=== PATIENT | female | born 1960 | race American Indian/Alaskan Native ===

== ENCOUNTER 2016-12-15 02:00 | Emergency (ER) | payer OTHER, MEDICAID ==
[2016-12-15 02:22] VITALS: BP 102/72; PULSE 82; RESP 16; TEMP 97.2
--- NOTE | 2016-12-15 03:12 | C.PDOC ---
History Of Present Illness <Rebeca Vogel - Last Filed: 12/15/16 03:09> <Kaye Bella - Last Filed: 12/15/16 03:34> 56 year old female presents to the ED with complaints of progressively worsening knee pain after falling two days ago and landing on right knee bent. She states she applied ice right away to her knee but did not take any over the counter medications for it. Patient notes moderate swelling of right knee and denies weakness and numbness. (Kaye Bella) <Rebeca Vogel - Last Filed: 12/15/16 03:09> History Per: Patient History/Exam Limitations: no limitations Onset/Duration Of Symptoms: Days Current Symptoms Are (Timing): Worse - Knee Description Of Injury: Fell <Kaye Bella - Last Filed: 12/15/16 03:34> Time Seen by Provider: 12/15/16 02:05 Chief Complaint (Nursing): Lower Extremity Problem/Injury Past Medical History - Medical History PMH: Asthma, Bronchitis, Pneumonia Denies: Chronic Kidney Disease Family History: States: Unknown Family Hx - Social History Hx Alcohol Use: No Hx Substance Use: No <Rebeca Vogel - Last Filed: 12/15/16 03:09> Reviewed: Historical Data, Nursing Documentation, Vital Signs <Kaye Bella - Last Filed: 12/15/16 03:34> Vital Signs: Last Vital Signs Temp 97.2 F L 12/15/16 02:07 Pulse 82 12/15/16 02:07 Resp 16 12/15/16 02:07 BP 102/72 12/15/16 02:07 Pulse Ox 98 12/15/16 03:19 Review Of Systems Constitutional: Negative for: Fever, Chills, Sweats Cardiovascular: Negative for: Chest Pain Respiratory: Negative for: Cough, Shortness of Breath Gastrointestinal: Negative for: Nausea, Vomiting, Abdominal Pain, Diarrhea Musculoskeletal: Positive for: Other (right knee pain and swelling ) Skin: Negative for: Rash Neurological: Negative for: Weakness, Numbness <Kaye Bella - Last Filed: 12/15/16 03:34> Physical Exam - Physical Exam Appears: Non-toxic, No Acute Distress Skin: Warm, Dry, No Rash Head: Atraumatic Neck: Supple Chest: Symmetrical, No Deformity Cardiovascular: Rhythm Regular Respiratory: No Rales, No Rhonchi, No Stridor, No Wheezing Gastrointestinal/Abdominal: Soft, No Tenderness, No Distention, No Guarding, No Rebound Extremity: Normal ROM (full ROM in right knee but with pain ), Tenderness ( tenderness to medial area of the knee and popliteal area ), Swelling (moderate swelling to anterior aspect of right knee), Other (no warmth or erythema to right knee ) Neurological/Psych: Oriented x3 <Kaye Bella - Last Filed: 12/15/16 03:34> ED Course And Treatment O2 Sat by Pulse Oximetry: 98 <Rebeca Vogel - Last Filed: 12/15/16 03:09> - Other Rad Right Knee E-Ray X-Ray: Viewed By Me, Read By Radiologist Interpretation: X-ray shows moderate arthritic changes. No fractures or dislocations <Kaye Bella - Last Filed: 12/15/16 03:34> Medical Decision Making <Rebeca Vogel - Last Filed: 12/15/16 03:09> <Kaye Bella - Last Filed: 12/15/16 03:34> Medical Decision Making: Patient was given a knee brace and was ambulatory with cane upon discharge home. (Kaye Bella) Disposition Counseled Patient/Family Regarding: Diagnosis, Need For Followup - Disposition Disposition Time: 03:12 <Rebeca Vogel - Last Filed: 12/15/16 03:09> <Kaye Bella - Last Filed: 12/15/16 03:34> - Disposition Disposition: HOME/ ROUTINE Condition: STABLE Additional Instructions: Please elevate leg Apply ICE Follow up with PMD Take motrin for pain Return to ER if worse Prescriptions: Ibuprofen [Motrin] 600 mg PO Q6H #30 tab Instructions: Knee Sprain (ED), Contusion in Adults (ED) - Clinical Impression Clinical Impression: Knee contusion, Knee pain, right <Rebeca Vogel - Last Filed: 12/15/16 03:09> - Scribe Statement The provider has reviewed the documentation as recorded by the Scribe <Kaye Bella - Last Filed: 12/15/16 03:34> - Scribe Statement Meg Westbrook All medical record entries made by the Scribe were at my direction and personally dictated by me. I have reviewed the chart and agree that the record accurately reflects my personal performance of the history, physical exam, medical decision making, and the department course for this patient. I have also personally directed, reviewed, and agree with the discharge instructions and disposition. (Kaye Bella)
[2016-12-15 03:33] VITALS: O2SAT 99
--- NOTE | 2016-12-15 03:39 | C.PDOC ---
History Of Present Illness 56 year old female presents to the ED with complaints of progressively worsening knee pain after falling two days ago and landing on a bent right knee . She states she applied ice right away to her knee but did not take any over the counter medications for it. Patient notes moderate swelling of right knee and denies weakness and numbness. Time Seen by Provider: 12/15/16 02:05 Chief Complaint (Nursing): Lower Extremity Problem/Injury History Per: Patient History/Exam Limitations: no limitations Onset/Duration Of Symptoms: Days Current Symptoms Are (Timing): Worse - Knee Description Of Injury: Fell Past Medical History Reviewed: Historical Data, Nursing Documentation, Vital Signs Vital Signs: Last Vital Signs Temp 97.2 F L 12/15/16 02:07 Pulse 82 12/15/16 02:07 Resp 16 12/15/16 02:07 BP 102/72 12/15/16 02:07 Pulse Ox 99 12/15/16 03:44 - Medical History PMH: Asthma, Bronchitis, Pneumonia Family History: States: Unknown Family Hx - Social History Hx Alcohol Use: No Hx Substance Use: No Review Of Systems Constitutional: Negative for: Fever Musculoskeletal: Positive for: Other (moderate right knee swelling and pain) Neurological: Negative for: Weakness, Numbness Physical Exam - Physical Exam Appears: Non-toxic, No Acute Distress Skin: Warm, Dry, No Rash Head: Atraumatic Eye(s): bilateral: PERRL, EOMI Neck: Supple Extremity: Normal ROM (full ROM but with pain in right knee), Tenderness ( tenderness to medial right knee and popliteal area), No Calf Tenderness, Capillary Refill (<2 sec), No Deformity, Swelling (moderate swelling to anterior Rt knee ) Extremity: Bilateral: Normal Color And Temperature Pulses: Left Dorsalis Pedis: Normal, Right Dorsalis Pedis: Normal Neurological/Psych: Oriented x3, Normal Motor, Normal Sensation Gait: With Assistance (cane) ED Course And Treatment O2 Sat by Pulse Oximetry: 99 (room air ) Pulse Ox Interpretation: Normal - Other Rad Right Knee X-Ray X-Ray: Viewed By Me, Read By Radiologist Interpretation: No fractures or dislocations. X-ray shows moderate arthritic changes Medical Decision Making Medical Decision Making: Patient was placed in a knee brace by CP and was ambulatory with a cane upon discharge. Disposition Counseled Patient/Family Regarding: Studies Performed, Diagnosis, Need For Followup, Rx Given - Disposition Disposition: HOME/ ROUTINE Disposition Time: 03:32 Condition: STABLE Additional Instructions: Please elevate leg Apply ICE Follow up with PMD Take motrin for pain Return to ER if worse Prescriptions: Ibuprofen [Motrin] 600 mg PO Q6H #30 tab Instructions: Knee Sprain (ED), Contusion in Adults (ED) - Clinical Impression Clinical Impression: Knee contusion, Knee pain, right - Scribe Statement The provider has reviewed the documentation as recorded by the Scribradha Westbrook All medical record entries made by the Pita were at my direction and personally dictated by me. I have reviewed the chart and agree that the record accurately reflects my personal performance of the history, physical exam, medical decision making, and the department course for this patient. I have also personally directed, reviewed, and agree with the discharge instructions and disposition.
--- NOTE | 2016-12-15 12:20 | RAD ---
PROCEDURE: Right Knee Radiographs. HISTORY: pain, fall COMPARISON: None. FINDINGS: BONES: Degenerative changes medial compartment, lateral compartment and patellofemoral joint. JOINTS: Moderate osteoarthritic changes. JOINT EFFUSION: Moderate suprapatellar joint effusion. OTHER FINDINGS: None. IMPRESSION: Multi compartment degenerative change. No acute fracture. Moderate suprapatellar joint effusion.
== END 2016-12-15 03:32 | disposition home or self-care (01) ==
LOC: C.ER 02:00
DX: S80.01XA Contusion of right knee, initial encounter (principal); W19.XXXA Unspecified fall, initial encounter; M25.561 Pain in right knee
CPT/HCPCS: 73562; 96372; 99283; J1885

== ENCOUNTER 2017-02-14 20:57 | Emergency (ER) | payer OTHER, MEDICAID ==
[2017-02-14 21:16] VITALS: BP 117/72; PULSE 76; RESP 20; TEMP 97.7; O2SAT 100
--- NOTE | 2017-02-14 21:49 | C.PDOC ---
History Of Present Illness 57 year old female presents to ED requesting tetanus vaccination after sustaining a scratch to the tip of the left second digit. pt states she went to pickle cutter a wooden crate when an exposed nail injured her. 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) Current Symptoms Are (Timing): Still Present Location Of Injury: Left: Hand (tip of second digit) Quality Of Symptoms: Painful Severity: None Pain Scale Rating Of: 0 Recent travel outside of the [place]: No Past Medical History Reviewed: Historical Data, Nursing Documentation, Vital Signs Vital Signs: Last Vital Signs Temp 97.7 F 02/14/17 21:11 Pulse 76 02/14/17 21:11 Resp 20 02/14/17 21:11 BP 117/72 02/14/17 21:11 Pulse Ox 100 02/14/17 22:04 - Medical History PMH: Asthma, Bronchitis, Pneumonia Denies: Chronic Kidney Disease Family History: States: Unknown Family Hx - Social History Hx Alcohol Use: No Hx Substance Use: No Review Of Systems Except As Marked, All Systems Reviewed And Found Negative. Physical Exam - Physical Exam Appears: Well, Non-toxic, No Acute Distress Skin: Normal Color, Warm, Dry Head: Atraumatic Eye(s): bilateral: Normal Inspection, PERRL, EOMI Oral Mucosa: Moist Extremity: Normal ROM, No Tenderness, Capillary Refill (<2 seconds), No Deformity, No Swelling, Other (superficial puncture wound to the distal aspect of the left second digit- palmar aspect, no FB) Neurological/Psych: Oriented x3 ED Course And Treatment O2 Sat by Pulse Oximetry: 100 Pulse Ox Interpretation: Normal Progress Note: Pt appears well, superficial excoriation/ puncture to left 2nd digit at palmar aspect, Tetanus was ordered. wound care and follow up instructions. Ag Service Manager acknowledged understanding Disposition Counseled Patient/Family Regarding: Diagnosis, Need For Followup - Disposition Disposition: HOME/ ROUTINE Disposition Time: 21:48 Condition: STABLE Additional Instructions: Keep wound clean and dry. Follow up with PMD. Return to ER if symptoms worsen or persist. Instructions: Diphtheria/Acellular Pertussis/Tetanus Vaccine (DTaP) (By injection) - Clinical Impression Clinical Impression: Abrasion of finger
== END 2017-02-14 22:08 | disposition home or self-care (01) ==
LOC: C.ER 20:57
DX: S60.411A Abrasion of left index finger, initial encounter (principal); W45.0XXA Nail entering through skin, initial encounter; Y93.89 Activity, other specified; Y92.89 Other specified places as the place of occurrence of the external cause

== ENCOUNTER 2017-12-28 13:38 | Emergency (ER) | payer MEDICAID, OTHER ==
[2017-12-28 13:43] VITALS: RESP 18
--- NOTE | 2017-12-28 15:10 | CT ---
PROCEDURE: CT HEAD WITHOUT CONTRAST. HISTORY: trauma COMPARISON: None available. TECHNIQUE: Axial computed tomography images were obtained through the head/brain without intravenous contrast. Radiation dose: Total exam DLP = 754.2 mGy-cm. This CT exam was performed using one or more of the following dose reduction techniques: Automated exposure control, adjustment of the mA and/or kV according to patient size, and/or use of iterative reconstruction technique. FINDINGS: HEMORRHAGE: No intracranial hemorrhage. BRAIN: No mass effect or edema. Possible old lacunar infarction versus dilated perivascular space noted at the white matter of the right temporal lobe image 15 series 2. No atrophy or chronic microvascular ischemic changes. VENTRICLES: Unremarkable. No hydrocephalus. CALVARIUM: Unremarkable. PARANASAL SINUSES: Unremarkable as visualized. No significant inflammatory changes. MASTOID AIR CELLS: Unremarkable as visualized. No inflammatory changes. OTHER FINDINGS: None. IMPRESSION: No evidence of acute intracranial hemorrhage mass effect midline shift or intracranial collection. Sub centimeter hypodensity at the white matter of the right temporal lobe may represent chronic lacunar infarction versus dilated perivascular space.
--- NOTE | 2017-12-28 15:21 | C.PDOC ---
History Of Present Illness 57yo female, presents to ER for evaluation of a head injury, sustained 1 hour prior to arrival. Patient states the garage door mechanism in her home broke and the spring from there hit her head, causing her to fall after which the garage door hit her on the head. Patient also reports dizziness at the time. Denies any loss of consciousness, nausea, vomiting, visual changes, changes in sensation, fever or other injuries. PMD: Dr. Peres - [facility] Time Seen by Provider: 12/28/17 13:45 Chief Complaint (Nursing): Trauma History Per: Patient History/Exam Limitations: no limitations Onset/Duration Of Symptoms: Hrs (1) Injury Occurred (Timing): Hours Ago: (1) Associated Symptoms: Dizziness Additional History Per: Patient Past Medical History Reviewed: Historical Data, Nursing Documentation, Vital Signs Vital Signs: Last Vital Signs Temp 98.8 F 12/28/17 15:34 Pulse 80 12/28/17 15:34 Resp 18 12/28/17 15:34 BP 120/75 12/28/17 15:34 Pulse Ox 96 12/28/17 17:15 - Medical History PMH: Asthma, Bronchitis, Pneumonia Denies: Chronic Kidney Disease Surgical History: No Surg Hx Family History: States: No Known Family Hx, Unknown Family Hx - Social History Hx Tobacco Use: No Hx Alcohol Use: No Hx Substance Use: No - Immunization History Hx Tetanus Toxoid Vaccination: Yes Hx Influenza Vaccination: Yes Hx Pneumococcal Vaccination: Yes Review Of Systems Except As Marked, All Systems Reviewed And Found Negative. Constitutional: Negative for: Fever, Chills Eyes: Negative for: Vision Change Neurological: Positive for: Dizziness, Other (head injury) Physical Exam - Physical Exam Appears: Non-toxic, No Acute Distress Skin: Warm, Dry Head: Normacephalic, Tenderness (tenderness to posterior scalp, no laceration or swelling), No Laceration Eye(s): bilateral: Normal Inspection, PERRL, EOMI Nose: Normal Oral Mucosa: Moist Neck: Normal ROM, Supple Chest: Symmetrical Cardiovascular: Rhythm Regular Respiratory: Normal Breath Sounds, No Accessory Muscle Use Extremity: Normal ROM Neurological/Psych: Oriented x3, Normal Speech, Normal Cognition, Normal Motor, Normal Sensation Gait: Steady ED Course And Treatment O2 Sat by Pulse Oximetry: 96 (RA) Pulse Ox Interpretation: Normal Progress Note: CT Head w/o contrast ordered. Pateint given Tylenol 650mg PO for pain relief. On reevaluation, patient reports improvement in pain. She is able to ambulate without difficulty and has a steady gait; patient is awake, alert and oriented x 3. Pt denies headache,. No neurologic deficit, photophobia, rash , fever, or nuchal rigidity. Instructed RICE and follow up with PMD in 1-2 days. Disposition - Disposition Referrals: Alena France MD [Staff Provider] - Disposition: HOME/ ROUTINE Disposition Time: 15:20 Condition: STABLE Additional Instructions: Follow up with your primary medical doctor or clinic in 2-5 days for further evaluation. Show them your CT results for further evaluation. Take medications as prescribed. Return to the emergency department at any time if symptoms persist or worsen. Instructions: Minor Head Injury (DC) Forms: [facility] (Samoan) - Clinical Impression Clinical Impression: Head contusion - PA / MATERIAL ATTENDANT / Resident Statement MD/DO has reviewed & agrees with the documentation as recorded. - Scribe Statement The provider has reviewed the documentation as recorded by the Scribe (Shanon Byrd) Provider Attestation: All medical record entries made by the Scribe were at my direction and personally dictated by me. I have reviewed the chart and agree that the record accurately reflects my personal performance of the history, physical exam, medical decision making, and the department course for this patient. I have also personally directed, reviewed, and agree with the discharge instructions and disposition.
[2017-12-28 15:34] VITALS: BP 120/75; PULSE 80; TEMP 98.8
[2017-12-28 17:09] VITALS: O2SAT 96
== END 2017-12-28 15:34 | disposition home or self-care (01) ==
LOC: C.ER 13:38
DX: S00.93XA Contusion of unspecified part of head, initial encounter (principal); W22.8XXA Striking against or struck by other objects, initial encounter